=== PATIENT | female | born 1975 | race Caucasian/White ===

== ENCOUNTER 2017-01-12 08:20 | Emergency (ER) | payer SELFPAY ==
[~2017-01-12 08:20] MED LIST: ADVIL; COLD MEDICINE; NORCO 5/325 TAB1 TAB PO; PEN-VEE K500 MG PO; PERCOCET 5-3251 EACH PO; ZOFRAN ODT4 MG PO
[2017-01-12] MEDS ORDERED: KEFLEX500 M4 PO (09:00)
== END 2017-01-12 09:02 ==
LOC: EDMED 08:20
DX: L03.116 Cellulitis of left lower limb (principal)